=== PATIENT | male | born 1955 | race Caucasian/White ===

== ENCOUNTER 2024-12-13 18:17 | Inpatient (IN) | payer BC, MEDICAID ==
[~2024-12-13] VITALS: Ht 157.5 cm; Wt 67.2 kg
[2024-12-13] MEDS: ACETAMINOPHEN 325MG TABLET PO ONE (19:23)
[2024-12-13] MEDS: SODIUM CHLORIDE 0.9% 1,000 ML IV ONE (19:23)
[2024-12-13 19:26] LABS: BASOPHILS % 1.1 % (0.0-2.0); EOSINOPHILS % 2.2 % (0.0-5.0); HEMATOCRIT. 43.3 % (42.0-52.0); HEMOGLOBIN. 14.3 g/dL (14.0-18.0); LYMPHOCYTES % 28.8 % (20.0-50.0); MEAN PLATELET VOLUME 10.2 fl (7.4-10.4); MONOCYTES % 6.9 % (2.0-8.0); NEUTROPHILS % 61.0 % (40.0-76.0); PLATELET 216 x1000/uL (130-400); RED BLOOD CELL COUNT 4.59 mill/uL (4.7-6.1); RED CELL DISTRIBUTION WIDTH 17.4 % (11.6-14.6)
[2024-12-13 19:39] LABS: CREATININE 1.7 mg/dL (0.6-1.3); UREA NITROGEN BLOOD 15 mg/dL (9-23)
[2024-12-13 19:41] LABS: TROPONIN I HIGH SENSITIVITY 17 ng/L (3.0-53)
[2024-12-13 20:13] LABS: INR 0.9
[2024-12-13] MEDS ORDERED: ONDANSETRON HCL 4MG/2ML INJ IV PRN (22:45)
[2024-12-13] MEDS ORDERED: ACETAMINOPHEN 325MG TABLET PO PRN (22:45)
[2024-12-13] MEDS ORDERED: MAGNESIUM/ALUMINUM HYDROXIDE/SIMETHICONE 30ML UDC PO PRN (22:45)
[2024-12-13] MEDS ORDERED: DEXTROSE 50% WATER 50ML SYRINGE IV PRN (22:45)
[2024-12-13 23:00] VITALS: BP 151/83; PULSE 85; RESP 18; TEMP 36.5848
[2024-12-13] MEDS ORDERED: NALOXONE HCL 0.4MG/ML VIAL IV PRN (23:00)
[2024-12-13] MEDS: MORPHINE SULFATE 2 MG/ML INJ (NOT FOR IM USE) IV PRN (23:27)
[2024-12-13] MEDS ORDERED: ASPI-1406 PO (23:40)
[2024-12-13] MEDS ORDERED: CARV3.1242 PO (23:40)
[2024-12-13] MEDS ORDERED: GABA-1180 PO (23:40)
[2024-12-13] MEDS ORDERED: LOSA50TA41 PO (23:40)
[2024-12-13] MEDS ORDERED: ATOR40TA70 PO (23:40)
[2024-12-13] MEDS ORDERED: FAMO20TA8 PO (23:40)
[2024-12-13] MEDS ORDERED: NITR0.4T49 SL (23:40)
[2024-12-13] MEDS ORDERED: NIFE90TA69 PO (23:40)
[2024-12-13] MEDS ORDERED: RANO500T6 PO (23:40)
[2024-12-13] MEDS ORDERED: GLIP5TAB22 PO (23:40)
[2024-12-14] VITALS: BP 153/85; PULSE 80; RESP 18; TEMP 36.6; O2SAT 100
[2024-12-14] MEDS: HYDROCODONE/ACETAMINOPHEN 5/325MG TABLET PO PRN (02:41)
[2024-12-14 04:00] VITALS: BP 154/82; PULSE 76; RESP 18; TEMP 36.3; O2SAT 99
[2024-12-14] MEDS: ZOLPIDEM TARTRATE 5MG TABLET PO PRN (05:03)
[2024-12-14] MEDS: BLOOD SUGAR DIAGNOSTIC STRIP TEST SCH (06:40)
[2024-12-14 07:34] LABS: CLARITY URINE CLEAR (CLEAR); COLOR URINE YELLOW (YELLOW); GLUCOSE URINE NEGATIVE (NEGATIVE); KETONES URINE NEGATIVE (NEGATIVE); LEUKOCYTE ESTERASE URINE NEGATIVE (NEGATIVE); NITRITE URINE NEGATIVE (NEGATIVE); OCCULT BLOOD URINE NEGATIVE (NEGATIVE); PH URINE 8.5 (4.5-8.0); PROTEIN URINE 2+ (NEGATIVE); SPECIFIC GRAVITY URINE 1.007 (1.005-1.030); UROBILINOGEN URINE 0.2 E.U./dL (0.2-1.0)
[2024-12-14] MEDS: INSULIN LISPRO 100 UNITS/ML SUBCUT SCH (07:49)
[2024-12-14 08:00] VITALS: BP 157/85; PULSE 76; RESP 16; TEMP 37.2; O2SAT 98
[2024-12-14 08:05] LABS: *AMPHETAMINES SCREEN URINE NEGATIVE (NEGATIVE); *BARBITURATES SCREEN URINE NEGATIVE (NEGATIVE); *BENZODIAZEPINES SCREEN URINE NEGATIVE (NEGATIVE); *COCAINE SCREEN URINE NEGATIVE (NEGATIVE); CANNABINOID URINE SCREEN NEGATIVE (NEGATIVE); ECSTASY MDMA SCREEN URINE NEGATIVE (NEGATIVE); METHADONE URINE SCREEN NEGATIVE (NEGATIVE); OPIATES URINE SCREEN PRESUMPTIVE POSITIVE (NEGATIVE); PHENCYCLIDINE URINE SCREEN NEGATIVE (NEGATIVE)
[2024-12-14 08:06] LABS: RBC URINE 0-2 /hpf (0-2); WBC URINE 0-2 /hpf (0-2)
[2024-12-14 08:07] LABS: BACTERIA URINE NONE SEEN; SQUAMOUS EPITHELIAL CELL URINE 1+ /lpf (RARE/1+)
[2024-12-14] MEDS: PANTOPRAZOLE SODIUM 40 MG/VIAL IV SCH (09:26)
[2024-12-14] MEDS: ENOXAPARIN 40MG/0.4ML SYR SUBCUT SCH (09:26)
[2024-12-14 09:58] LABS: CREATININE 1.7 mg/dL (0.6-1.3); TROPONIN I HIGH SENSITIVITY 23 ng/L (3.0-53); UREA NITROGEN BLOOD 16.0 mg/dL (9-23)
[2024-12-14 09:59] LABS: BASOPHILS % 0.4 % (0.0-2.0); EOSINOPHILS % 2.1 % (0.0-5.0); HEMATOCRIT. 39.0 % (42.0-52.0); HEMOGLOBIN. 12.8 g/dL (14.0-18.0); LYMPHOCYTES % 26.3 % (20.0-50.0); MEAN PLATELET VOLUME 10.0 fl (7.4-10.4); MONOCYTES % 7.4 % (2.0-8.0); NEUTROPHILS % 63.8 % (40.0-76.0); PLATELET 212 x1000/uL (130-400); RED BLOOD CELL COUNT 4.12 mill/uL (4.7-6.1); RED CELL DISTRIBUTION WIDTH 17.1 % (11.6-14.6)
[2024-12-14 12:00] VITALS: BP 158/86; PULSE 81; RESP 19; TEMP 36.5; O2SAT 100
[2024-12-14] MEDS: CLONIDINE 0.1MG TABLET PO PRN (15:21)
[2024-12-14 16:00] VITALS: BP 173/93; PULSE 83; RESP 15; TEMP 36.4; O2SAT 96
[2024-12-14 17:34] LABS: TROPONIN I HIGH SENSITIVITY 20 ng/L (3.0-53)
[2024-12-14 20:00] VITALS: BP 115/73; PULSE 74; RESP 19; TEMP 35.7; O2SAT 100
[2024-12-14] MEDS: ATORVASTATIN CALCIUM 20MG TABLET PO SCH (20:41)
[2024-12-15] VITALS: BP 139/80; PULSE 78; RESP 19; TEMP 36.4; O2SAT 96
[2024-12-15 04:00] VITALS: BP 151/82; PULSE 77; RESP 18; TEMP 36.2; O2SAT 100
[2024-12-15 08:00] VITALS: BP 160/88; PULSE 82; RESP 18; TEMP 36.5; O2SAT 100
[2024-12-15] MEDS ORDERED: ASPIRIN 81MG EC TABLET PO SCH (09:00)
[2024-12-15] MEDS: RANOLAZINE 500 MG TAB.SR.12H PO SCH (09:41)
[2024-12-15] MEDS: NIFEDIPINE XL 90MG TAB PO SCH (09:41)
[2024-12-15] MEDS: LOSARTAN 50 MG TABLET PO SCH (09:41)
[2024-12-15] MEDS: CARVEDILOL 3.125 MG TABLET PO SCH (09:42)
[2024-12-15] MEDS: ASPIRIN 81MG TABLET PO SCH (09:43)
[2024-12-15 10:09] LABS: BASOPHILS % 0.9 % (0.0-2.0); EOSINOPHILS % 2.7 % (0.0-5.0); HEMATOCRIT. 39.0 % (42.0-52.0); HEMOGLOBIN. 13.1 g/dL (14.0-18.0); LYMPHOCYTES % 33.2 % (20.0-50.0); MEAN PLATELET VOLUME 9.5 fl (7.4-10.4); MONOCYTES % 8.5 % (2.0-8.0); NEUTROPHILS % 54.7 % (40.0-76.0); PLATELET 183 x1000/uL (130-400); RED BLOOD CELL COUNT 4.10 mill/uL (4.7-6.1); RED CELL DISTRIBUTION WIDTH 16.9 % (11.6-14.6)
[2024-12-15 10:28] LABS: CREATININE 2.0 mg/dL (0.6-1.3); UREA NITROGEN BLOOD 19.0 mg/dL (9-23)
[2024-12-15 12:00] VITALS: BP 132/82; PULSE 76; RESP 18; TEMP 36.2; O2SAT 98
[2024-12-15] MEDS ORDERED: REGADENOSON 0.4 MG/5 ML IV SCH (12:30)
[2024-12-15 16:00] VITALS: BP 139/80; PULSE 77; RESP 18; TEMP 36.3; O2SAT 98
[2024-12-15 20:00] VITALS: BP 125/75; PULSE 80; RESP 18; TEMP 36.3; O2SAT 98
[2024-12-15] MEDS ORDERED: ATORVASTATIN CALCIUM 40MG TABLET PO SCH (21:00)
[2024-12-16] VITALS: BP 98/55; PULSE 64; RESP 18; TEMP 36.3; O2SAT 97
[2024-12-16 04:00] VITALS: BP 99/58; PULSE 67; RESP 16; TEMP 36.2; O2SAT 96
[2024-12-16 08:00] VITALS: BP 129/74; PULSE 80; RESP 17; TEMP 36.3; O2SAT 99
[2024-12-16] MEDS ORDERED: REGADENOSON 0.4 MG/5 ML IV ONE (10:28)
[2024-12-16 12:00] VITALS: BP 133/70; PULSE 80; RESP 18; TEMP 36.4; O2SAT 98
[2024-12-16 17:36] LABS: BASOPHILS % 0.6 % (0.0-2.0); EOSINOPHILS % 1.7 % (0.0-5.0); HEMATOCRIT. 37.2 % (42.0-52.0); HEMOGLOBIN. 12.1 g/dL (14.0-18.0); LYMPHOCYTES % 26.5 % (20.0-50.0); MEAN PLATELET VOLUME 10.5 fl (7.4-10.4); MONOCYTES % 8.7 % (2.0-8.0); NEUTROPHILS % 62.5 % (40.0-76.0); PLATELET 192 x1000/uL (130-400); RED BLOOD CELL COUNT 3.87 mill/uL (4.7-6.1); RED CELL DISTRIBUTION WIDTH 17.3 % (11.6-14.6)
[2024-12-16 17:53] LABS: CREATININE 2.9 mg/dL (0.6-1.3); UREA NITROGEN BLOOD 28.0 mg/dL (9-23)
[2024-12-16 19:04] VITALS: BP 118/80; PULSE 88; TEMP 97.4; O2SAT 99
== END 2024-12-16 19:38 | disposition home or self-care (01) | DRG 291 ==
LOC: ER 18:17 → EDBEDREQTM 22:14 → EDBEDREQ 22:14 → ENRESERV 22:19 → 6WST 23:10
PROVIDERS: ADMIT Internal Medicine; ATTEND Internal Medicine
DX: I13.2 Hypertensive heart and chronic kidney disease with heart failure and with stage 5 chronic kidney disease, or end stage renal disease (principal); I50.23 Acute on chronic systolic (congestive) heart failure; N18.6 End stage renal disease; K21.9 Gastro-esophageal reflux disease without esophagitis; I42.0 Dilated cardiomyopathy; E11.22 Type 2 diabetes mellitus with diabetic chronic kidney disease; E78.5 Hyperlipidemia, unspecified; I44.7 Left bundle-branch block, unspecified; D64.9 Anemia, unspecified; G24.9 Dystonia, unspecified; I25.10 Atherosclerotic heart disease of native coronary artery without angina pectoris; Z95.1 Presence of aortocoronary bypass graft; Z98.61 Coronary angioplasty status; Z99.2 Dependence on renal dialysis; Z79.82 Long term (current) use of aspirin; Z79.84 Long term (current) use of oral hypoglycemic drugs; Z79.899 Other long term (current) drug therapy
CPT/HCPCS: 36415; 71045; 73130; 76770; 78452; 80048; 80305; 81003; 82550; 82962; 83036; 83735; 83880; 84443; 84484; 85025; 85379; 93005; 93017; 93970; 99285; A9500; J1650; J1815; J2270; J2470; J2785; J7030